=== PATIENT | female | born 1980 | race Caucasian/White ===

== ENCOUNTER 2016-12-01 22:51 | Inpatient (IN) | payer OTHER ==
[~2016-12-01] VITALS: Ht 162.6 cm; Wt 90.7 kg
--- NOTE | 2016-12-01 22:58 | NUR ---
Informed waiting has been performed. PT AWARE OF 2 HOUR POTENTIAL WAIT
--- NOTE | 2016-12-01 23:53 | ED GI/GU/ABDOMINAL COMPLAINT ---
History of Present Illness General Chief Complaint: Abdominal Pain/Flank Pain Stated Complaint: ABD/HERNIA PAIN Source: patient Exam Limitations: no limitations Vital Signs & Intake/Output Vital Signs & Intake/Output Vital Signs Date Time Temp Pulse Resp B/P B/P Pulse O2 O2 Flow FiO2 Mean Ox Delivery Rate 12/02 0117 96.9 109 20 124/72 94 Room Air 12/01 2358 96.6 114 18 127/79 98 Room Air ED Intake and Output 12/02 0000 06 1200 Intake Total Output Total Balance Patient 190 lb Weight Allergies Coded Allergies: bee venom protein (honey bee) (Intermediate, BEES 12/02/16) ibuprofen (HX GASTRIC BYPASS AND ULCERS 12/01/16) Triage Nurses Notes Reviewed? yes (none) ? n Is pt currently ? No HPI: Ms. Back is a 36 yo f w/ PMH of depression/anxiety presenting to ED for abdominal pain. Patient states her pains been ongoing for the past 2 days but has acutely worsened tonight. She endorses nausea without any vomiting. Subjective feeling of warmness but denies fever or chills. Patient believes this pain is coming from her abdominal hernia which she has had 2 operations on. Patient denies any possibility of being as she does have the Implanon in place. No chest pain, cough, shortness of breath, vomiting or diarrhea. Positive nausea. Patient also states she has history of gastritis and ulcers and cannot take any Motrin. (JUN JONES,ANKIT) Reconcile Medications Gabapentin 600 MG TABLET 1 TAB PO TID DIABETES (Reported) Lamotrigine 100 MG TABLET DEPRESSION (Reported) (LADONNA JONES,ALLISON Leslie) Past History Travel History Traveled to [place] past 21 day No Medical History Any Pertinent Medical History? see below for history Psychiatric: anxiety, depression, insomnia Surgical History Surgical History: hernia repair, gastric bypass Psychosocial History Who do you live with Patient/Self What is your primary language Malagasy Family History Hx Contributory? No (ANKIT BARAHONA MD) Review of Systems Review of Systems Constitutional: Reports: see HPI. EENTM: Reports: see HPI. Respiratory: Reports: no symptoms. Cardiovascular: Reports: no symptoms. GI: Reports: abdominal pain, distention, nausea. Genitourinary: Reports: no symptoms. Musculoskeletal: Reports: no symptoms. Skin: Reports: no symptoms. Neurological/Psychological: Reports: no symptoms. Hematologic/Endocrine: Reports: no symptoms. Immunologic/Allergic: Reports: no symptoms. All Other Systems: Reviewed and Negative (ANKIT BARAHONA MD) Physical Exam Physical Exam General Appearance: well developed/nourished, alert, awake, moderate distress Head: atraumatic, normal appearance Eyes: Bilateral: normal appearance, PERRL, EOMI, normal inspection. Ears, Nose, Throat, Mouth: hearing grossly normal, moist mucous membrane Neck: normal inspection, supple, full range of motion Respiratory: normal breath sounds, chest non-tender, no respiratory distress Cardiovascular: regular rate/rhythm Gastrointestinal: normal bowel sounds, soft, guarding, RUQ, epigastric and RLQ abdominal pain. No rebound. +voluntary guarding. Back: normal inspection, normal range of motion Extremities: normal range of motion Neurologic/Psych: no motor/sensory deficits, awake, alert, oriented x 3, normal gait, normal mood/affect Skin: intact, normal color, warm/dry Core Measures ACS in differential dx? No Severe Sepsis Present: No Septic Shock Present: No (ANKIT BARAHONA MD) Progress Differential Diagnosis: appendicitis, cholecystitis, diverticulitis, gastritis, ischemic bowel, peptic ulcer, PUD/GERD, perforated viscous, UTI/pyelo Plan of Care: Orders Procedure Date/time Status Add-on Test (ER Only) 12/02 0120 Active HUMAN BETA HCG TITRE 12/02 0030 Complete URINALYSIS 12/02 0008 Active LACTIC ACID 12/02 0006 Complete COMPREHENSIVE METABOLIC PANEL 12/02 0006 Complete CBC WITHOUT DIFFERENTIAL 12/02 0006 Complete Current Medications Sig/Lyndon Start time Last Medication Dose Stop Time Status Admin Sodium Chloride 1,000 ML BOLUS ONE 12/02 0415 AC 12/02 (Normal Saline 0.9%) 12/02 0514 0407 Laboratory Tests 12/02/16 0306: Lactic Acid Cancelled 12/02/16 0030: Anion Gap 10, Estimated GFR > 60, BUN/Creatinine Ratio 26.7 H, Glucose 108 H, Lactic Acid 1.9, Calcium 9.0, Total Bilirubin 0.4, AST 20, ALT 39, Alkaline Phosphatase 70, Total Protein 6.3, Albumin 3.7, Globulin 2.6, Albumin/Globulin Ratio 1.4, Beta HCG, Quant < 2.4, CBC w Diff NO MAN DIFF REQ, RBC 4.24, MCV 86.2 , MCH 28.7, RDW 17.7 H, MPV 8.0, Gran % 71.4, Lymphocytes % 22.4, Monocytes % 5.1, Eosinophils % 0.6, Basophils % 0.5, Absolute Granulocytes 6.3, Absolute Lymphocytes 2.0, Absolute Monocytes 0.4, Absolute Eosinophils 0, Absolute Basophils 0, PUBS MCHC 33.3 Michael is a 36 yo f w/ abdominal pain w/ 3 previous surgeries (1 lap gastric bypass, 1 lap hernia repair, 1 open hernia repair). Possib obstruction, but less likely given the lack of vomiting. + ischemic gut or closed loop obstruction. Pt also had + mejia's sign and RLQ pain. Possib cholecystitis vs appendicitis respectively. Will administer zofran and morphine then plan to obtain CT abd pelv w/ PO/IV contrast. (JUN JONES,ANKIT) Initial ED EKG: none Hand-Off Endorsed To: LADONNA JONES,ALLISON Leslie Endorsed Time: 50 Pending: CT, labs, other (urine preg, UA) (JUN JONES,ANKIT) Diagnostic Imaging: Viewed by Me: CT Scan. Discussed w/RAD: CT Scan. Radiology Impression: PATIENT: MICHAEL BACK PRESENT AGE: 36 PATIENT ACCOUNT NO: [id number] : 78 LOCATION: [facility] ORDERING PHYSICIAN: ANKIT BARAHONA MD SERVICE DATE: 12/02/16 EXAM TYPE: CAT - CT ABD & PELVIS W ORAL & IV CO EXAMINATION: CT ABDOMEN AND PELVIS WITH CONTRAST CLINICAL INFORMATION: Abdominal pain. History of hernia and gastric bypass. Question appendicitis. COMPARISON: 06/15/2012 TECHNIQUE: Multidetector volumetric imaging was performed of the abdomen and pelvis before and after the IV administration of 95 mL of Optiray 320 intravenous contrast. Oral contrast was utilized. Sagittal and coronal reformatted images were obtained on the technologist's workstation. DLP: 794 mGy-cm FINDINGS: LUNG BASES: The visualized lung bases are unremarkable. LIVER, GALLBLADDER, AND BILIARY TREE: The liver is normal in size, shape, and attenuation. No focal hepatic lesion or biliary ductal dilatation is present. The gallbladder is unremarkable with no evidence of radiopaque gallstones, gallbladder wall thickening, or obvious pericholecystic inflammatory changes. PANCREAS: Unremarkable. SPLEEN: Unremarkable. ADRENAL GLANDS: Unremarkable. KIDNEYS AND URETERS: The kidneys are normal in size, shape, and attenuation. No hydronephrosis, hydroureter, or calculi seen. No perinephric stranding. BLADDER: Decompressed with no gross abnormality. GASTROINTESTINAL TRACT: Status post Jose-en-Y gastric bypass. Small hiatal hernia. Contrast freely flows across the gastrojejunostomy and into the small bowel distally. No obstruction. There is the appearance of wall thickening of the gastric antrum. Prominent inflammatory changes are seen in the surrounding mesenteric fat extending anteriorly and inferiorly. Small foci of free air are noted. Moderate colonic stool burden. No colonic wall thickening. Fecalization of portions of the small bowel suggests slow transit. Normal appendix. ABDOMINAL WALL: No significant hernia is appreciated. LYMPH NODES: Normal. VASCULAR: Unremarkable. PELVIC VISCERA: The uterus and adnexa are unremarkable. OSSEOUS STRUCTURES: Unremarkable. IMPRESSION: Prominent inflammatory stranding adjacent to the gastric antrum extending anteriorly and distally in the abdomen. Associated wall thickening at the gastric antrum with small foci of adjacent free air. The appearance is suspicious for perforation of a gastric ulcer. Jose-en-Y gastric bypass without obstruction. Normal appendix. This critical result was discussed with Allison Finnegan M.D. by telephone at 12/02/2016 2:30 AM and it was ascertained that the content and urgency of the report was understood at the time of direct communication. DICTATED BY: LINAA MARX MD DATE/TIME DICTATED:12/02/16225 RESEARCH SUBJECT:ALICIA DATE/TIME TRANSCRIBED:12/02/16225 CONFIDENTIAL, DO NOT COPY WITHOUT APPROPRIATE AUTHORIZATION. <Electronically signed in Other Vendor System> SIGNED BY: LIANA MARX MD 12/02/16 0238 (LADONNA JONES,ALLISON Leslie) Departure Departure Time of Disposition: 53 Disposition: STILL A PATIENT Condition: Stable Referrals: MER SORIANO (PCP/Family) Departure Forms: Customer Survey General Discharge Information (ANKIT BARAHONA MD) Departure Clinical Impression Primary Impression: Abdominal pain Qualifiers: Abdominal location: generalized Qualified Code: R10.84 - Generalized abdominal pain Secondary Impressions: Perforated gastric ulcer Admission Note Spoke With: ASHLYN PIRES MD Documentation of Exam: Documentation of any treatments & extenuating circumstances including Concerns Regarding Discharge (functional status, medication knowledge or non-compliance, living conditions, etc.) that warrant an admission rather than observation: [NPO , IV FLUIDS, IV ABX, SURGICAL INTERVENTION] Resident Co-Sign Statement Statement: ED Attending supervision documentation- [X] I saw and evaluated the patient. I have also reviewed all the pertinent lab results and diagnostic results. I agree with the findings and the plan of care as documented in the Resident's documentation. [X] I have reviewed the ED Record and agree with the Resident's documentation. [] Additions or exceptions (if any) to the Resident's note and plan are summarized below: [] (LADONNA JONES,ALLISON Lesile)
[2016-12-02 00:50] LABS: ABSOLUTE BASOPHIL COUNT 0 /CUMM (0.0-0.2); ABSOLUTE EOSINOPHIL COUNT 0 /CUMM (0.0-0.7); ABSOLUTE GRANULOCYTE CT 6.3 /CUMM (1.4-6.5); ABSOLUTE MONOCYTE COUNT 0.4 /CUMM (0.10-0.60); BASOPHIL % 0.5 % (0.0-2.0); EOSINOPHIL % 0.6 % (0-5); GRANULOCYTE % 71.4 % (42.2-75.2); HEMATOCRIT 36.5 % (37-47); MEAN CORPUSCULAR HGB 28.7 PG (27.0-31.0); MEAN CORPUSCULAR HGB CONC 33.3 G/DL (33.0-37.0); MEAN CORPUSCULAR VOLUME 86.2 FL (81.0-99.0); PLATELET COUNT 408 /CUMM (130-400); RBC DISTRIBUTION WIDTH 17.7 % (11.5-14.5); RED BLOOD CELL CT 4.24 /CUMM (4.20-5.40); WHITE BLOOD CELL COUNT 8.9 /CUMM (4.8-10.8)
[2016-12-02] MEDS ORDERED: GABAPENTIN600 M1 PO (00:55)
[2016-12-02] MEDS ORDERED: LAMOTRIGINE100 M2 (00:55)
--- NOTE | 2016-12-02 01:00 | NUR ---
PT REPORTS HAVING ABD PAIN, STATES IT BEGAN AFTER SHE ATE. ALSO REPORTS IT FEELS LIKE THE SAME WHEN SHE HAD A HERNIA.
--- NOTE | 2016-12-02 01:20 | NUR ---
AWAITING TEST RESULT PRIOR TO CT SCAN.
--- NOTE | 2016-12-02 02:30 | NUR ---
PT RETURNED FROM CT
--- NOTE | 2016-12-02 02:38 | CT SCAN REPORT ---
EXAMINATION: CT ABDOMEN AND PELVIS WITH CONTRAST CLINICAL INFORMATION: Abdominal pain. History of hernia and gastric bypass. Question appendicitis. COMPARISON: 06/15/2012 TECHNIQUE: Multidetector volumetric imaging was performed of the abdomen and pelvis before and after the IV administration of 95 mL of Optiray 320 intravenous contrast. Oral contrast was utilized. Sagittal and coronal reformatted images were obtained on the technologist's workstation. DLP: 794 mGy-cm FINDINGS: LUNG BASES: The visualized lung bases are unremarkable. LIVER, GALLBLADDER, AND BILIARY TREE: The liver is normal in size, shape, and attenuation. No focal hepatic lesion or biliary ductal dilatation is present. The gallbladder is unremarkable with no evidence of radiopaque gallstones, gallbladder wall thickening, or obvious pericholecystic inflammatory changes. PANCREAS: Unremarkable. SPLEEN: Unremarkable. ADRENAL GLANDS: Unremarkable. KIDNEYS AND URETERS: The kidneys are normal in size, shape, and attenuation. No hydronephrosis, hydroureter, or calculi seen. No perinephric stranding. BLADDER: Decompressed with no gross abnormality. GASTROINTESTINAL TRACT: Status post Jose-en-Y gastric bypass. Small hiatal hernia. Contrast freely flows across the gastrojejunostomy and into the small bowel distally. No obstruction. There is the appearance of wall thickening of the gastric antrum. Prominent inflammatory changes are seen in the surrounding mesenteric fat extending anteriorly and inferiorly. Small foci of free air are noted. Moderate colonic stool burden. No colonic wall thickening. Fecalization of portions of the small bowel suggests slow transit. Normal appendix. ABDOMINAL WALL: No significant hernia is appreciated. LYMPH NODES: Normal. VASCULAR: Unremarkable. PELVIC VISCERA: The uterus and adnexa are unremarkable. OSSEOUS STRUCTURES: Unremarkable. IMPRESSION: Prominent inflammatory stranding adjacent to the gastric antrum extending anteriorly and distally in the abdomen. Associated wall thickening at the gastric antrum with small foci of adjacent free air. The appearance is suspicious for perforation of a gastric ulcer. Jose-en-Y gastric bypass without obstruction. Normal appendix. This critical result was discussed with Mack Finnegan M.D. by telephone at 12/02/2016 2:30 AM and it was ascertained that the content and urgency of the report was understood at the time of direct communication.
--- NOTE | 2016-12-02 02:56 | NUR ---
LIBIA CRAIG RETURNED CALL.
--- NOTE | 2016-12-02 04:05 | NUR ---
PT DOES NOT FEEL THE URGE TO VOID MD AWARE,2ND LITER KOLBY BARRAZA BY SURG PA NOW AWAITS PRANAY HOLLY,
--- NOTE | 2016-12-02 05:30 | NUR ---
DR. PIRES IN WITH PT.
--- NOTE | 2016-12-02 05:32 | NUR ---
ANESTHESIA AT BEDSIDE.
--- NOTE | 2016-12-02 05:36 | NUR ---
PT NOW REPORTS VOIDED IN CT. UNABLE TO GO AT THIS TIME
--- NOTE | 2016-12-02 05:48 | Admission Core Measures ---
Admission Lab Results I reviewed the following labs: Laboratory Tests 12/02 12/02 0306 0030 Chemistry Sodium (137 - 145 mmol/L) 139 Potassium (3.5 - 5.1 mmol/L) 4.6 Chloride (98 - 107 mmol/L) 104 Carbon Dioxide (22 - 30 mmol/L) 24 Anion Gap (5 - 16) 10 BUN (7 - 17 mg/dL) 16 Creatinine (0.5 - 1.0 mg/dL) 0.6 Estimated GFR (>60 ml/min) > 60 BUN/Creatinine Ratio (7 - 25 %) 26.7 H Glucose (65 - 99 mg/dL) 108 H Lactic Acid (0.7 - 2.1 mmol/L) Cancelled 1.9 Calcium (8.4 - 10.2 mg/dL) 9.0 Total Bilirubin (0.2 - 1.3 mg/dL) 0.4 AST (14 - 36 U/L) 20 ALT (9 - 52 U/L) 39 Alkaline Phosphatase (<127 U/L) 70 Total Protein (6.3 - 8.2 g/dL) 6.3 Albumin (3.5 - 5.0 g/dL) 3.7 Globulin (1.9 - 4.2 gm/dL) 2.6 Albumin/Globulin Ratio (1.1 - 2.2 %) 1.4 Beta HCG, Quant (mIU/mL) < 2.4 Hematology CBC w Diff NO MAN DIFF REQ WBC (4.8 - 10.8 /CUMM) 8.9 RBC (4.20 - 5.40 /CUMM) 4.24 Hgb (12.0 - 16.0 G/DL) 12.2 Hct (37 - 47 %) 36.5 L MCV (81.0 - 99.0 FL) 86.2 MCH (27.0 - 31.0 PG) 28.7 RDW (11.5 - 14.5 %) 17.7 H Plt Count (130 - 400 /CUMM) 408 H MPV (7.4 - 10.4 FL) 8.0 Gran % (42.2 - 75.2 %) 71.4 Lymphocytes % (20.5 - 51.1 %) 22.4 Monocytes % (1.7 - 9.3 %) 5.1 Eosinophils % (0 - 5 %) 0.6 Basophils % (0.0 - 2.0 %) 0.5 Absolute Granulocytes (1.4 - 6.5 /CUMM) 6.3 Absolute Lymphocytes (1.2 - 3.4 /CUMM) 2.0 Absolute Monocytes (0.10 - 0.60 /CUMM) 0.4 Absolute Eosinophils (0.0 - 0.7 /CUMM) 0 Absolute Basophils (0.0 - 0.2 /CUMM) 0 PUBS MCHC (33.0 - 37.0 G/DL) 33.3 Acute Coronary Syndrome Inclusion Criteria ACS Diagnosis No Inpatient Core Measures LDL Reminder: If No, please order W/I first 24hr of stay Congestive Heart Failure Inclusion Criteria CHF Diagnosis No Cerebrovascular accident Inclusion Criteria CVA/TIA Diagnosis No Inpatient Core Measures Bedside Swallow Eval Reminder: If BSE failed, place ST order Antithrombotic Reminder: Order Antithrombotic Medication by end of day 2 Antithrombotic Reminder: Document Reason Antithrombotic Not ordered by end of day 2 AFIB/Flutter Reminder: If Present, add to problem list AFIB/Flutter Reminder: Order Anticoag Medication for pts with AFIB/Flutter Atherosclerosis Reminder: If Present, add to problem list LDL Reminder: If No, please order W/I first 24hr of stay PT Order Reminder: If No, please order Venous thromboembolism Inpatient Core Measures VTE Risk Factors: Surgery No [facility] VTE prophylaxis d/t No contraindications No VTE Pharm Prophylaxis d/t No contraindications Inclusion Criteria - Per Current guidelines, there needs to be overlap - treatment for the first 5 days of Warfarin therapy. - Parenteral Anticoagulation (IV or SC) needs to be - given along with Warfarin therapy. VTE Diagnosis No VTE Type NONE VTE Confirmed by (Test) NONE Problem List As ranked by this Provider includes Assessment & Plan 1. Pneumoperitoneum HOME MEDS Home Med List Gabapentin 600 MG TABLET 1 TAB PO TID DIABETES (Reported)
[2016-12-02] MEDS ORDERED: METHADONE HCL10 M1 PO (05:58)
[2016-12-02] MEDS ORDERED: ABILIFY2 MG (05:59)
--- NOTE | 2016-12-02 06:11 | History & Physical Pre-Op ---
See Addendum General Information and HPI MD Statement: I have seen and personally examined UGO HARDY and documented this H&P. The patient is a 36 year old F who presented with a patient stated chief complaint of []. History of Present Illness: 36yoF presents to ED co abdominal pain worsening over approx. 24 hrs. 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 Began to noitce dull pain right side of abd approx 24 hr ago, than has since worsened. Last BM yesterday am, no constipation/diarrhea, no blood in stool. No nausea/vomiting, little PO intake since pain began. Denies CP/sob/f/c. Has never had such severe abdominal pain, and sought tx in ED. On CT, found with pnemoperitoneum from ?perforated gastric ulcer of remnant stomach. Had UNasyn and IVF in ED. Allergies/Medications Allergies: Coded Allergies: bee venom protein (honey bee) (Intermediate, BEES 12/02/16) ibuprofen (HX GASTRIC BYPASS AND ULCERS 12/01/16) Home Med list Aripiprazole (Abilify) (Unknown Strength) TABLET (Unknown Dose) DEP (Reported ) Gabapentin 600 MG TABLET 1 TAB PO TID DIABETES (Reported) Lamotrigine 100 MG TABLET DEPRESSION (Reported) Methadone Hydrochloride (Methadone HCl) 10 MG TABLET 65 MG PO D DRUGS ( Reported) Compliance With Home Meds: UNKNOWN Past History Medical History Neurological: NONE EENT: NONE Cardiovascular: NONE Respiratory: NONE Gastrointestinal: hiatal hernia, GASTRIC BYPASS Hepatic: NONE Renal: NONE Musculoskeletal: NONE Psychiatric: anxiety, depression, insomnia, IV drug abuse (METHADONE MAINTANCE PROGRAM) Endocrine: NONE Blood Disorders: NONE Cancer(s): NONE SAP SPECIALIST/Reproductive: NONE Surgical History Pertinent Surgical History: hernia repair gastric bypass Exam & Diagnostic Data Physical Exam: GEN: NAD CARD: s1s2 RRR PULM:CTAB ABD: dist, tympanic, very ttp right abd, hyperactive bs EXT: calves soft nt Last 24 Hrs of Labs/Ghulam: Laboratory Tests 12/02/16 0306: Lactic Acid Cancelled 12/02/16 0030: Anion Gap 10, Estimated GFR > 60, BUN/Creatinine Ratio 26.7 H, Glucose 108 H, Lactic Acid 1.9, Calcium 9.0, Total Bilirubin 0.4, AST 20, ALT 39, Alkaline Phosphatase 70, Total Protein 6.3, Albumin 3.7, Globulin 2.6, Albumin/Globulin Ratio 1.4, Beta HCG, Quant < 2.4, CBC w Diff NO MAN DIFF REQ, RBC 4.24, MCV 86.2 , MCH 28.7, RDW 17.7 H, MPV 8.0, Gran % 71.4, Lymphocytes % 22.4, Monocytes % 5.1, Eosinophils % 0.6, Basophils % 0.5, Absolute Granulocytes 6.3, Absolute Lymphocytes 2.0, Absolute Monocytes 0.4, Absolute Eosinophils 0, Absolute Basophils 0, PUBS MCHC 33.3 Assessment/Plan Assessment/Plan: A: Abd pain, pneumoperitoneum on CT, tachycardic, otherwise stable. P: Emergently to OR DW Dr. Cervantes As Ranked By This Provider Problem List: 1. Pneumoperitoneum
[2016-12-02] MEDS ORDERED: ABILIFY5 M1 PO (07:43)
--- NOTE | 2016-12-02 08:02 | Operative Report ---
Operative/Inv Procedure Report Surgery Date: 12/02/16 Name of Procedure: Exploratory laparoscopy and Ja patch Pre-Operative Diagnosis: Perforated gastric antral ulcer Post-Operative Diagnosis: Perforated gastric antral ulcer Estimated Blood Loss: evangelina Surgeon/Outreach Worker: Dr. Stefano Angulo surgeon Dr. Billy loomis Asst. Anesthesia: general endotracheal tube Drains: SONY placed over the gastric ulcer in the lesser curve Complications: None Condition: Stable Operative Indication: This is a 36-year-old female who of her previous gastric bypass done open in the past. She has had previous lysis of adhesions for 5 hours finding no evidence of pathology in the past. She presented to the hospital with epigastric abdominal pain history of smoking and vaporizing and possible other abuse she was then found to have free air around the antrum of the stomach consistent ureters consistent with perforated viscus. The patient was seen by Dr. Cervantes who was the attending at the time and he explained the risks and potential complications I have not seen the patient prior to surgery. I was called in after the patient was intubated and Dr. Cervantes started the case. Operative/Procedure Note Note: The patient was brought into the operating room placed table in the supine position after the administration of general anesthesia the patient was prepped and draped in the sterile fashion. A 12 mm Visiport was placed in the left upper quadrant and inserted after making an incision and local anesthesia as performed by Dr. Cervantes. Obtaining visualization I entered the room and joined the case. A second port was placed in the left midabdomen. Third and fourth port ports were placed in the right upper quadrant. At this time could see there was inflammation in and around the second and third portion of the liver. Liver was elevated. Was hard inflammatory fatty omentum under beneath the liver. Once his fatty omentum was freed up one could see that there was a 1/2 cm punctate hole in the stomach. Well-defined edges. Rasper could be inserted through this hole and into the stomach lumen. So was the location of the lesser curve of the stomach. At this time with clean edges a 20 absorbable V lock suture was then used starting on the stomach placing a full-thickness stitch locking it and running with 4 passes and completely closing the ulcer defect. Then a piece of fatty omentum was freed up with the use of LigaSure device was brought underneath and it was locked into place with the 20V lock suture. The abdomen was irrigated with copious amounts of saline. One 4 x 4 was used and them removed. The ports removed under direct vision the gas removed from the abdomen the Valsalva maneuvers performed. The left upper quadrant incision was closed with 2 interrupted 0 Vicryl sutures. Can was closed with 4-0 Monocryl. SONY was sewn in with 2-0 nylon. These Steri-Strips replacement wounds had sterile dressing on the wound. The procedure was brought to recovery in stable condition.
--- NOTE | 2016-12-02 10:20 | NUR ---
PATIENT ARRIVED TO FLOOR FROM PACU VIA STRETCHER; PATIENT A/OX3; RA; TRANSFERED FROM STRETCHER TO BED; PATIENT COMPLAINING OF 10/10 ABDOMINAL PAIN; ABDOMEN SOFT; 3 SMALL DRESSINGS TO ABDOMEN C/D/I; SONY DRAIN TO ABDOMEN; TURNER CATHETER IN PLACE; PATIENT MEDICATED WITH DAILY METHADONE AT THIS TIME PER ORDERS AND ALSO GIVEN IV TYLENOL FOR PAIN PER ORDERS; ALPS IN PLACE; CALL STEELE AND NEEDS WITHIN REACH; WILL CONTINUE TO MONITOR PATIENT;
[2016-12-02 10:26] VITALS: BP 136/90
--- NOTE | 2016-12-02 11:00 | NUR ---
PATIENT OOB TO CHAIR WITH MIN ASSIST; EATING ESTONIAN ICE AT THIS TIME; WILL CONTINUE TO MONITOR PATIENT;
[2016-12-02 14:24] VITALS: BP 110/70
--- NOTE | 2016-12-02 15:11 | PN- Bariatrics ---
Subjective Subjective: POST-OP NOTE: Reports pain uncontrolled with iv tylenol and iv morphine. "Dilaudid helped me in the ER". Currently tolerating clears. No nausea. Not yet out of bed. No dizziness. No shortness of breath. No chest pains. Agreeable to morales removal. Objective Vital Signs and I&Os Vital Signs Date Time Temp Pulse Resp B/P B/P Pulse O2 O2 Flow FiO2 Mean Ox Delivery Rate 12/02 1424 97.5 77 20 110/70 94 / 1026 98.1 78 20 136/90 94 / 0117 96.9 109 20 124/72 94 Room Air 12/01 2358 96.6 114 18 127/79 98 Room Air Intake & Output 12/02 1600 12/02 0800 12/02 0000 12/01 1600 12/01 0800 12/01 0000 Intake Total 600 1000 Output Total 2570 Balance -1970 1000 Intake, IV 300 1000 Intake, Oral 300 Output, 20 Drainage Output, Urine 2550 Patient 200 lb 190 lb Weight Weight Reported by Patient Measurement Method Physical Exam: General - alert & oriented x 3. comfortable. no acute distress. Lungs - clear bilaterally. no w/r/r. Cardiac - s1s2. reg. Abdomen - soft. dressings c/d/i. SONY drain with serosang drainage. expected christian- incisional tenderness. - morales draining clear, yellow urine Extremities - warm bilaterally. no c/c/e. calves soft and nontender b/l. athrombics active. Current Medications: Current Medications Sig/Lyndon Start time Last Medication Dose Route Stop Time Status Admin Acetaminophen 1,000 MG Q6P PRN 12/02 0730 AC 12/02 IV 1032 Ampicillin Sodium/ 3,000 MG Q6 12/02 1200 AC 12/02 Sulbactam Sodium IV 12/12 1159 1327 Sodium Chloride 100 ML Ampicillin Sodium/ 0 .STK-MED ONE 12/02 0247 DC Sulbactam Sodium .ROUTE Ampicillin Sodium/ 3,000 MG ONCE ONE 12/02 0245 DC 12/02 Sulbactam Sodium IV 12/02 0314 0247 Sodium Chloride 100 ML Aripiprazole 5 MG DAILY 12/02 1000 AC 12/02 PO 1326 Bupivacaine HCl/ 10 ML .STK-MED ONE 12/02 0944 DC Epinephrine Bitart SC 12/02 0945 Dextrose/Sodium 1,000 ML .[id number] 12/02 0730 AC 12/02 Chloride IV 1036 Famotidine 0 .STK-MED ONE 12/02 0041 DC IV Famotidine 20 MG ONCE ONE 12/02 0030 DC 12/02 IV 12/02 0031 0042 Gabapentin 600 MG Q8 12/02 1400 AC 06 PO 1326 Heparin Sodium 5,000 UNIT Q8 12/02 1400 AC 12/02 (Porcine) SC 1327 Hydromorphone HCl 1 MG ONCE ONE 12/02 0245 DC 12/02 IV 12/02 0246 0240 Hydromorphone HCl 0 .STK-MED ONE 12/02 0242 DC .ROUTE Hydromorphone HCl 1 MG ONCE ONE 12/02 0130 DC 12/02 IV 12/02 0131 0125 Hydromorphone HCl 0 .STK-MED ONE 12/02 0128 DC .ROUTE Ketorolac 30 MG ONCE ONE 12/02 1345 DC 12/02 Tromethamine IV 12/02 1346 1421 Lamotrigine 100 MG DAILY 12/02 1000 AC 12/02 PO 1326 Methadone HCl 65 MG DAILY 12/02 1000 AC 12/02 PO 1033 Morphine Sulfate 2 MG Q3P PRN 12/02 1300 AC IV Morphine Sulfate 4 MG Q3P PRN 12/02 1300 AC 12/02 IV 1303 Morphine Sulfate 0 .STK-MED ONE 12/02 0041 DC .ROUTE Morphine Sulfate 10 MG ONCE ONE 12/02 0015 DC 12/02 IV 12/02 0016 0042 Nicotine 14 MG DAILY 12/02 1000 AC 12/02 TOP 1327 Ondansetron HCl 4 MG Q6P PRN 12/02 0730 AC IV Ondansetron HCl 0 .STK-MED ONE 12/02 0040 DC .ROUTE Ondansetron HCl 4 MG ONCE ONE 12/02 0015 DC 12/02 IV 12/02 0016 0042 Pantoprazole Sodium 40 MG BID 12/02 1000 AC 12/02 IV 1032 Sodium Chloride 1,000 ML BOLUS ONE 12/02 0415 DC 12/02 IV 12/02 0514 0407 Sodium Chloride 1,000 ML BOLUS ONE 12/02 0015 DC 12/02 IV 12/02 0114 0042 Results Last 48 Hours of Labs: Laboratory Tests 12/02 12/02 0306 0030 Chemistry Sodium (137 - 145 mmol/L) 139 Potassium (3.5 - 5.1 mmol/L) 4.6 Chloride (98 - 107 mmol/L) 104 Carbon Dioxide (22 - 30 mmol/L) 24 Anion Gap (5 - 16) 10 BUN (7 - 17 mg/dL) 16 Creatinine (0.5 - 1.0 mg/dL) 0.6 Estimated GFR (>60 ml/min) > 60 BUN/Creatinine Ratio (7 - 25 %) 26.7 H Glucose (65 - 99 mg/dL) 108 H Lactic Acid (0.7 - 2.1 mmol/L) Cancelled 1.9 Calcium (8.4 - 10.2 mg/dL) 9.0 Total Bilirubin (0.2 - 1.3 mg/dL) 0.4 AST (14 - 36 U/L) 20 ALT (9 - 52 U/L) 39 Alkaline Phosphatase (<127 U/L) 70 Total Protein (6.3 - 8.2 g/dL) 6.3 Albumin (3.5 - 5.0 g/dL) 3.7 Globulin (1.9 - 4.2 gm/dL) 2.6 Albumin/Globulin Ratio (1.1 - 2.2 %) 1.4 Beta HCG, Quant (mIU/mL) < 2.4 Hematology CBC w Diff NO MAN DIFF REQ WBC (4.8 - 10.8 /CUMM) 8.9 RBC (4.20 - 5.40 /CUMM) 4.24 Hgb (12.0 - 16.0 G/DL) 12.2 Hct (37 - 47 %) 36.5 L MCV (81.0 - 99.0 FL) 86.2 MCH (27.0 - 31.0 PG) 28.7 RDW (11.5 - 14.5 %) 17.7 H Plt Count (130 - 400 /CUMM) 408 H MPV (7.4 - 10.4 FL) 8.0 Gran % (42.2 - 75.2 %) 71.4 Lymphocytes % (20.5 - 51.1 %) 22.4 Monocytes % (1.7 - 9.3 %) 5.1 Eosinophils % (0 - 5 %) 0.6 Basophils % (0.0 - 2.0 %) 0.5 Absolute Granulocytes (1.4 - 6.5 /CUMM) 6.3 Absolute Lymphocytes (1.2 - 3.4 /CUMM) 2.0 Absolute Monocytes (0.10 - 0.60 /CUMM) 0.4 Absolute Eosinophils (0.0 - 0.7 /CUMM) 0 Absolute Basophils (0.0 - 0.2 /CUMM) 0 PUBS MCHC (33.0 - 37.0 G/DL) 33.3 Assessment/Plan Assessment/Plan This 36 year old white female with hx gastric bypass who is POD#0 s/p exploratory laparoscopy and Ja patch for perforated gastric antral ulcer tolerating clears d/c morales she is reporting "only dilaudid helped me". continue iv tylenol. continue iv unasyn for intra-abdominal perforation / infection protonix bid hep sc - dvt ppx oob/ambulation continue methadone ok for nicotine patch but she verbalizes understanding of importance of smoking cessation will d/w Core Measures/Miscellaneous Venous Thromboembolism VTE Risk Factors: Obesity, Smoking, Surgery VTE Contraindications: No Contraindications VTE Diagnosis: No VTE Type: NONE VTE Confirmed by (Test): NONE Beta Marya Is Beta Marya a Home Med? No Antibiotics Is Patient on Antibiotics? Yes If Yes: infection
--- NOTE | 2016-12-02 20:20 | NUR ---
PT A&O, AMBULATING INDEPENDENTLY ON FLOOR, TURNER REMOVED AND PATIENT HAS VOIDED MULTIPLE TIMES. ABD BINDER IN PLACE, HELPING WITH PAIN, SOME DRAINAGE AT SONY DRAIN SITE, SURGICAL PA IS AWARE. PAIN 8-10, BEING MEDICATED WITH DILAUDID WITH A POSITIVE EFFECT. SAFETY MAINTAINED, NEEDS WITHIN REACH.
[2016-12-02 21:59] VITALS: BP 124/72
[2016-12-03 02:05] VITALS: BP 106/70
--- NOTE | 2016-12-03 06:44 | PN- Bariatrics ---
Subjective Subjective: Reports pain uncontrolled. Valium didn't help her "muscle spasm". Tolerating clears. Asking to eat. Getting up to void frequently. Passing flatus. no bm. Denies dizziness. no shortness of breath. No chest pains. Objective Vital Signs and I&Os Vital Signs Date Time Temp Pulse Resp B/P B/P Pulse O2 O2 Flow FiO2 Mean Ox Delivery Rate 12/03 0205 99.3 92 18 106/70 93 Room Air 12/02 2159 99.3 105 20 124/72 93 Room Air 12/02 1424 97.5 77 20 110/70 94 12/02 1026 98.1 78 20 136/90 94 Intake & Output 12/03 0800 12/03 0000 12/02 1600 12/02 0800 12/02 0000 12/01 1600 Intake Total 0688 169 6077 Output Total 820 2970 Balance 380 -2370 1000 Intake, IV 195 005 2385 Intake, Oral 600 300 Output, 20 20 Drainage Output, Urine 800 2950 Patient 200 lb 190 lb Weight Weight Reported by Patient Measurement Method Physical Exam: General - alert & oriented x 3. comfortable. no acute distress. Lungs - clear bilaterally. no w/r/r. Cardiac - s1s2. reg. Abdomen - soft. dressings c/d/i. SONY drain with dark bloody drainage. drain dressing saturated. Extremities - warm bilaterally. no c/c/e. calves soft and nontender bilaterally. Current Medications: Current Medications Sig/Lyndon Start time Last Medication Dose Route Stop Time Status Admin Acetaminophen 1,000 MG Q6P PRN 12/02 0730 AC 12/02 IV 2224 Ampicillin Sodium/ 3,000 MG Q6 12/02 1200 AC 12/03 Sulbactam Sodium IV 12/12 1159 0513 Sodium Chloride 100 ML Aripiprazole 5 MG DAILY 12/02 1000 AC 12/02 PO 1326 Bupivacaine HCl/ 10 ML .STK-MED ONE 12/02 0944 DC Epinephrine Bitart SC 12/02 0845 Dextrose/Sodium 1,000 ML .[id number] 12/02 0630 DC 12/02 Chloride IV 2114 Diazepam 5 MG Q8P PRN 12/03 0645 UNVr PO Diazepam 2 MG Q8P PRN 12/03 0530 DC 12/03 PO 0628 Diazepam 2 MG ONCE ONE 12/02 221 DC 12/02 PO 12/02 2216 2223 Gabapentin 600 MG Q8 12/02 1400 AC 12/03 PO 0518 Heparin Sodium 5,000 UNIT Q8 12/02 1400 AC 12/03 (Porcine) SC 0514 Hydromorphone HCl 0.4 MG Q2-3 HRS NEEDED.. 12/03 0545 UNVr IV Hydromorphone HCl 0.6 MG Q2-3 HRS NEEDED.. 12/03 0545 UNVr IV Hydromorphone HCl 1 MG Q2-3 HRS NEEDED.. 12/03 0545 UNVr IV Hydromorphone HCl 0.2 MG Q2-3 HRS NEEDED.. 12/02 1515 DC IV Hydromorphone HCl 0.4 MG Q2-3 HRS NEEDED.. 12/02 1515 DC IV Hydromorphone HCl 0.6 MG Q2-3 HRS NEEDED.. 12/02 1515 DC 12/03 IV 0457 Ketorolac 30 MG Q6 12/03 0638 UNVr Tromethamine IV Ketorolac 30 MG ONCE ONE 12/02 1345 DC 12/02 Tromethamine IV 12/02 1346 1421 Lamotrigine 100 MG DAILY 12/02 1000 AC 12/02 PO 1326 Methadone HCl 65 MG DAILY 12/02 1000 AC 12/02 PO 1033 Morphine Sulfate 2 MG Q3P PRN 12/02 1300 DC IV Morphine Sulfate 4 MG Q3P PRN 12/02 1300 DC 12/02 IV 1303 Nicotine 14 MG DAILY 12/02 1000 AC 12/02 TOP 1327 Ondansetron HCl 4 MG Q6P PRN 12/02 0730 AC IV Pantoprazole Sodium 40 MG BID 12/02 1000 AC 12/02 IV 2103 Trazodone HCl 50 MG AT BEDTIME NEED.. 12/02 2200 AC PO Results Last 48 Hours of Labs: Laboratory Tests 12/02 12/02 0306 0030 Chemistry Sodium (137 - 145 mmol/L) 139 Potassium (3.5 - 5.1 mmol/L) 4.6 Chloride (98 - 107 mmol/L) 104 Carbon Dioxide (22 - 30 mmol/L) 24 Anion Gap (5 - 16) 10 BUN (7 - 17 mg/dL) 16 Creatinine (0.5 - 1.0 mg/dL) 0.6 Estimated GFR (>60 ml/min) > 60 BUN/Creatinine Ratio (7 - 25 %) 26.7 H Glucose (65 - 99 mg/dL) 108 H Lactic Acid (0.7 - 2.1 mmol/L) Cancelled 1.9 Calcium (8.4 - 10.2 mg/dL) 9.0 Total Bilirubin (0.2 - 1.3 mg/dL) 0.4 AST (14 - 36 U/L) 20 ALT (9 - 52 U/L) 39 Alkaline Phosphatase (<127 U/L) 70 Total Protein (6.3 - 8.2 g/dL) 6.3 Albumin (3.5 - 5.0 g/dL) 3.7 Globulin (1.9 - 4.2 gm/dL) 2.6 Albumin/Globulin Ratio (1.1 - 2.2 %) 1.4 Beta HCG, Quant (mIU/mL) < 2.4 Hematology CBC w Diff NO MAN DIFF REQ WBC (4.8 - 10.8 /CUMM) 8.9 RBC (4.20 - 5.40 /CUMM) 4.24 Hgb (12.0 - 16.0 G/DL) 12.2 Hct (37 - 47 %) 36.5 L MCV (81.0 - 99.0 FL) 86.2 MCH (27.0 - 31.0 PG) 28.7 RDW (11.5 - 14.5 %) 17.7 H Plt Count (130 - 400 /CUMM) 408 H MPV (7.4 - 10.4 FL) 8.0 Gran % (42.2 - 75.2 %) 71.4 Lymphocytes % (20.5 - 51.1 %) 22.4 Monocytes % (1.7 - 9.3 %) 5.1 Eosinophils % (0 - 5 %) 0.6 Basophils % (0.0 - 2.0 %) 0.5 Absolute Granulocytes (1.4 - 6.5 /CUMM) 6.3 Absolute Lymphocytes (1.2 - 3.4 /CUMM) 2.0 Absolute Monocytes (0.10 - 0.60 /CUMM) 0.4 Absolute Eosinophils (0.0 - 0.7 /CUMM) 0 Absolute Basophils (0.0 - 0.2 /CUMM) 0 PUBS MCHC (33.0 - 37.0 G/DL) 33.3 Assessment/Plan Assessment/Plan This 36 year old white female with hx gastric bypass who is POD#1 s/p exploratory laparoscopy and Ja patch for perforated gastric antral ulcer tolerating clears d/c iv fluids f/u labs morales removed yesterday, voiding well continue iv unasyn for intra-abdominal perforation continue iv tylenol. add iv toradol around the clock will increased valium and dilaudid prn pain continue methadone abdominal binder oob/ambulation hep sc - dvt ppx she is reporting "only dilaudid helped me". continue iv tylenol. continue iv unasyn for intra-abdominal perforation / infection protonix bid nicotine patch - smoking cessation will d/w Core Measures/Miscellaneous Venous Thromboembolism VTE Risk Factors: Obesity, Smoking, Surgery VTE Contraindications: No Contraindications VTE Diagnosis: No VTE Type: NONE VTE Confirmed by (Test): NONE Beta Marya Is Beta Marya a Home Med? No Antibiotics Is Patient on Antibiotics? Yes If Yes: infection
[2016-12-03 07:35] VITALS: BP 108/70
[2016-12-03 07:40] LABS: ABSOLUTE BASOPHIL COUNT 0 /CUMM (0.0-0.2); ABSOLUTE EOSINOPHIL COUNT 0 /CUMM (0.0-0.7); ABSOLUTE GRANULOCYTE CT 6.1 /CUMM (1.4-6.5); ABSOLUTE LYMPH COUNT 1.7 /CUMM (1.2-3.4); ABSOLUTE MONOCYTE COUNT 0.9 /CUMM (0.10-0.60); BASOPHIL % 0.3 % (0.0-2.0); EOSINOPHIL % 0.4 % (0-5); HEMATOCRIT 31.9 % (37-47); MEAN CORPUSCULAR HGB 29.2 PG (27.0-31.0); MEAN CORPUSCULAR HGB CONC 32.9 G/DL (33.0-37.0); MEAN CORPUSCULAR VOLUME 88.7 FL (81.0-99.0); MEAN PLATELET VOLUME 8.3 FL (7.4-10.4); PLATELET COUNT 328 /CUMM (130-400); RBC DISTRIBUTION WIDTH 17.8 % (11.5-14.5); RED BLOOD CELL CT 3.59 /CUMM (4.20-5.40); WHITE BLOOD CELL COUNT 8.8 /CUMM (4.8-10.8)
[2016-12-03] MEDS ORDERED: ABILIFY5 M1 PO (11:25)
[2016-12-03 14:32] VITALS: BP 142/64
[2016-12-03 22:29] VITALS: BP 130/78
[2016-12-04 06:53] VITALS: BP 116/76
[2016-12-04 09:08] LABS: ABSOLUTE BASOPHIL COUNT 0 /CUMM (0.0-0.2); ABSOLUTE EOSINOPHIL COUNT 0.1 /CUMM (0.0-0.7); ABSOLUTE GRANULOCYTE CT 4.3 /CUMM (1.4-6.5); ABSOLUTE LYMPH COUNT 2.1 /CUMM (1.2-3.4); ABSOLUTE MONOCYTE COUNT 0.8 /CUMM (0.10-0.60); BASOPHIL % 0.4 % (0.0-2.0); GRANULOCYTE % 57.6 % (42.2-75.2); HEMATOCRIT 30.1 % (37-47); MEAN CORPUSCULAR HGB 28.8 PG (27.0-31.0); MEAN CORPUSCULAR HGB CONC 32.5 G/DL (33.0-37.0); MEAN CORPUSCULAR VOLUME 88.3 FL (81.0-99.0); MEAN PLATELET VOLUME 8.8 FL (7.4-10.4); PLATELET COUNT 310 /CUMM (130-400); RBC DISTRIBUTION WIDTH 17.2 % (11.5-14.5); RED BLOOD CELL CT 3.41 /CUMM (4.20-5.40); WHITE BLOOD CELL COUNT 7.4 /CUMM (4.8-10.8)
--- NOTE | 2016-12-04 10:51 | RADIOLOGY REPORT ---
EXAMINATION: [place] UPPER GI SERIES CLINICAL INFORMATION: History of gastric bypass surgery with ulcer perforation of gastric remnant, status post Ja patch. COMPARISON: CT images of the abdomen from 12/02/2016. TECHNIQUE: A single contrast upper GI series with fluoroscopy and spot imaging was performed. The patient ingested low 30 mL of Gastroview contrast material without difficulty and was evaluated in the upright and decubitus positions. Patient reported postoperative pain and inability to lay in a prone position. FLUOROSCOPY TIME: 1 minute, 57 seconds NUMBER OF IMAGES: 14 spot fluoroscopy images were saved in the electronic picture archive. FINDINGS: The initial abdominal radiographs show bibasilar atelectasis, surgical clips in the upper abdomen, SONY drainage catheter in the epigastric region, and normal bowel gas pattern. After oral intake of Gastroview contrast material, there was prolonged retention of contrast within the esophagus and gastric pouch. There was intermittent emptying of contrast through the gastrojejunal anastomosis and into the nondilated jejunum. No evidence of a fistulous communication between the gastric pouch and gastric remnant. There was no contrast leakage into the peritoneal cavity. IMPRESSION: 1. No evidence of a gastrogastric fistula. Therefore, the lumen of the gastric remnant could not be evaluated. 2. There was a stenotic appearance of the gastrojejunal anastomosis with intermittent passage of contrast through the narrowed anastomosis into the nondilated, normal proximal jejunum.
--- NOTE | 2016-12-04 11:47 | PN- Bariatrics ---
See Addendum Subjective Subjective: Awake, alert Awaiting upper GI results No abdominal pain, no nausea Passing flatus, no bm Ambulating without difficulty No complaints Objective Vital Signs and I&Os Vital Signs Date Time Temp Pulse Resp B/P B/P Pulse O2 O2 Flow FiO2 Mean Ox Delivery Rate 12/04 0653 98.1 78 18 116/76 98 Room Air 12/03 2229 98.9 100 20 130/78 94 Room Air 12/03 1432 98.1 103 20 142/64 94 Room Air Intake & Output 12/04 1600 12/04 0800 12/04 0000 12/03 1600 12/03 0800 12/03 0000 Intake Total 264 331 4946 1040 1200 Output Total 40 50 125 130 820 Balance 953 504 7762 910 380 Intake, IV 800 700 800 600 Intake, Oral 200 1925 240 600 Number 0 0 0 Bowel Movements Output, 40 50 125 130 20 Drainage Output, Urine 800 Physical Exam: vss, afebrile General: alert and oriented times three Chest: clear anteriorly bilaterally, RRR Abd: soft, good bs, non distended, Ext: warm, no edema Wound: dressed, dry SONY: 40cc last 8 hours, 50cc prior shift, dark brown/green liquid Assessment/Plan Assessment/Plan 36yo female with hx gastric bypass who is POD#2 s/p ex lap/Ja patch for perforated gastric antral ulcer fu UGI - reported negative - will restart clears continue iv unasyn for intra-abdominal perforation continue iv tylenol. add iv toradol around the clock abdominal binder oob/ambulation hep sc - dvt ppx protonix bid Core Measures/Miscellaneous Venous Thromboembolism VTE Risk Factors: Obesity, Smoking, Surgery VTE Contraindications: No Contraindications VTE Diagnosis: No VTE Type: NONE VTE Confirmed by (Test): NONE Beta Marya Is Beta Marya a Home Med? No Antibiotics Is Patient on Antibiotics? Yes If Yes: infection
--- NOTE | 2016-12-04 14:20 | NUR ---
PER DR MILO JACKSON TO DC IVF AT THIS TIME; KIARA ONEAL AWARE AND TO PLACE ORDER TO DC IVF;
[2016-12-04 14:40] VITALS: BP 122/74
--- NOTE | 2016-12-04 19:51 | NUR ---
PT C/O 10/10 PAIN AT 1600, WITH SPASMS, DILAUDID AND VALIUM GIVEN WITH POSITIVE EFFECT. CONTINUING WITH RIC TORADOL, HELPING PATIENT. INDEPENDENT AROUND UNIT. NO BOWEL MOVEMENT. DARK BROWN LIQUID TO SONY DRAIN. SX PA AWARE.
[2016-12-04 22:05] VITALS: BP 124/68; BP 98/60
[2016-12-05 06:25] VITALS: BP 120/70
--- NOTE | 2016-12-05 06:51 | PN- Bariatrics ---
Subjective Subjective: Reports pain improves with iv toradol. Tolerating diet. No nausea/vomiting. Passing flatus. No bm. Voiding well. SONY drain continues to drain bilious fluid. Objective Vital Signs and I&Os Vital Signs Date Time Temp Pulse Resp B/P B/P Pulse O2 O2 Flow FiO2 Mean Ox Delivery Rate 12/05 624 98.7 98 20 120/70 93 Room Air / 0150 99.1 12/04 2205 100.9 112 18 98/60 92 /08 1440 97.8 100 20 122/74 94 Room Air / 0653 98.1 78 18 116/76 98 Room Air Intake & Output 12/05 0800 / 0000 /08 1600 / 0800 / 0000 / 1600 Intake Total 700 1100 456 757 3120 Output Total 30 40 40 50 125 Balance 670 1060 381 651 0373 Intake, IV 100 600 800 700 Intake, Oral 600 804 473 2093 Number 0 0 0 0 Bowel Movements Output, 30 40 40 50 125 Drainage Patient 200 lb Weight Physical Exam: General - alert & oriented x 3. comfortable. no acute distress. Lungs - clear bilaterally. no w/r/r. Cardiac - s1s2. reg. Abdomen - soft. dressings c/d/i. SONY drain with bilious drainage. christian-incisional tenderness. Extremities - warm bilaterally. no c/c/e. calves soft and nontender b/l. Current Medications: Current Medications Sig/Lyndon Start time Last Medication Dose Route Stop Time Status Admin Acetaminophen 1,000 MG Q6P PRN 12/02 0730 AC 12/02 IV 2224 Ampicillin Sodium/ 3,000 MG Q6 12/02 1200 AC 12/05 Sulbactam Sodium IV 12/12 1159 0606 Sodium Chloride 100 ML Aripiprazole 10 MG DAILY 12/04 1000 AC 12/04 PO 1040 Diazepam 2 MG .STK-MED ONE 12/04 1639 DC PO 12/04 1640 Diazepam 5 MG Q8P PRN 12/03 0645 AC 12/04 PO 1641 Gabapentin 600 MG Q8 12/02 1400 AC 12/05 PO 0607 Heparin Sodium 5,000 UNIT Q8 12/02 1400 AC 12/05 (Porcine) SC 0607 Hydromorphone HCl 2 MG Q4-6 PRN PRN 12/05 0645 AC PO Hydromorphone HCl 4 MG Q4-6 PRN PRN 12/05 0545 AC PO Hydromorphone HCl 0.4 MG Q2-3 HRS NEEDED.. 12/03 644 DC IV Hydromorphone HCl 0.6 MG Q2-3 HRS NEEDED.. 12/03 644 DC 12/03 IV 1832 Hydromorphone HCl 1 MG Q2-3 HRS NEEDED.. 12/03 644 DC 12/04 IV 2150 Ketorolac 30 MG Q6 12/03 0638 AC 12/05 Tromethamine IV 0606 Lamotrigine 100 MG DAILY 12/02 1000 AC 12/04 PO 1040 Methadone HCl 65 MG DAILY 12/02 1000 AC 12/04 PO 1041 Nicotine 14 MG DAILY 12/02 1000 AC 12/04 TOP 1041 Ondansetron HCl 4 MG Q6P PRN 12/02 0630 AC IV Pantoprazole Sodium 40 MG BID 12/02 1000 AC 12/04 IV 2103 Potassium Chloride 20 MEQ Q10H 12/03 2355 DC 12/04 Dextrose/Sodium 1,000 ML IV 1040 Chloride Trazodone HCl 50 MG AT BEDTIME NEED.. 12/02 2200 AC 12/04 PO 2109 Results Last 48 Hours of Labs: Laboratory Tests 12/04 12/03 0647 0653 Chemistry Sodium (137 - 145 mmol/L) 138 136 L Potassium (3.5 - 5.1 mmol/L) 4.2 3.8 Chloride (98 - 107 mmol/L) 105 102 Carbon Dioxide (22 - 30 mmol/L) 28 30 Anion Gap (5 - 16) 5 5 BUN (7 - 17 mg/dL) 6 L 6 L Creatinine (0.5 - 1.0 mg/dL) 0.7 0.7 Estimated GFR (>60 ml/min) > 60 > 60 BUN/Creatinine Ratio (7 - 25 %) 8.6 8.6 Hematology CBC w Diff NO MAN DIFF REQ NO MAN DIFF REQ WBC (4.8 - 10.8 /CUMM) 7.4 8.8 RBC (4.20 - 5.40 /CUMM) 3.41 L 3.59 L Hgb (12.0 - 16.0 G/DL) 9.8 L 10.5 L Hct (37 - 47 %) 30.1 L 31.9 L MCV (81.0 - 99.0 FL) 88.3 88.7 MCH (27.0 - 31.0 PG) 28.8 29.2 RDW (11.5 - 14.5 %) 17.2 H 17.8 H Plt Count (130 - 400 /CUMM) 310 328 MPV (7.4 - 10.4 FL) 8.8 8.3 Gran % (42.2 - 75.2 %) 57.6 70.0 Lymphocytes % (20.5 - 51.1 %) 28.9 19.4 L Monocytes % (1.7 - 9.3 %) 11.1 H 9.9 H Eosinophils % (0 - 5 %) 2.0 0.4 Basophils % (0.0 - 2.0 %) 0.4 0.3 Absolute Granulocytes (1.4 - 6.5 /CUMM) 4.3 6.1 Absolute Lymphocytes (1.2 - 3.4 /CUMM) 2.1 1.7 Absolute Monocytes (0.10 - 0.60 /CUMM) 0.8 H 0.9 H Absolute Eosinophils (0.0 - 0.7 /CUMM) 0.1 0 Absolute Basophils (0.0 - 0.2 /CUMM) 0 0 PUBS MCHC (33.0 - 37.0 G/DL) 32.5 L 32.9 L Assessment/Plan Assessment/Plan This 36 year old white female with hx gastric bypass who is POD#3 s/p exploratory laparoscopy and Ja patch for perforated gastric antral ulcer ( remnant stomach) tolerating regular diet d/c iv dilaudid. continue tylenol. transition iv unasyn to oral augmentin for home SONY drain teaching protonix bid hep sc - dvt ppx continue methadone d/c planning will d/w / Core Measures/Miscellaneous Venous Thromboembolism VTE Risk Factors: Obesity, Smoking, Surgery VTE Contraindications: No Contraindications VTE Diagnosis: No VTE Type: NONE VTE Confirmed by (Test): NONE Beta Marya Is Beta Marya a Home Med? No Antibiotics Is Patient on Antibiotics? Yes If Yes: infection
[2016-12-05] MEDS ORDERED: DILAUDID2 M1 PO (06:57)
[2016-12-05] MEDS ORDERED: TYLENOL EXTRA500 M2 PO (06:57)
[2016-12-05] MEDS ORDERED: AUGMENTIN600 MG/5 M PO (06:57)
[2016-12-05] MEDS ORDERED: PROTONIX40 M3 PO (06:57)
--- NOTE | 2016-12-05 07:01 | Patient Discharge Instructions ---
Discharge Instructions General Discharge Information You were seen/treated for: Perforated gastric antral ulcer (remnant stomach) You had these procedures: Surgery Date: 12/02/16 Name of Procedure: Exploratory laparoscopy and Ja patch Watch for these problems: fever>101.3, increased pain, redness/swelling/drainage No bath, but you may shower: Yes Other wound care: SONY drain care. empty & record output as directed. Diet Continue normal diet: Yes Activity Full Activity/No Limits: No Activity Self Limited: Yes Pounds, do NOT lift more than: 10 Additional ACTIVITY Info: walk frequently Acute Coronary Syndrome Inclusion Criteria At DC or during hospital stay patient has or had the following: ACS DIAGNOSIS No Discharge Core Measures Meds if any: Prescribed or Continued at Discharge Meds if any: NOT Prescribed or Continued at Discharge Congestive Heart Failure Inclusion Criteria At DC or during hospital stay patient has or had the following: CHF DIAGNOSIS No Discharge Core Measures Meds if any: Prescribed or Continued at Discharge Meds if any: NOT Prescribed or Continued at Discharge Cerebrovascular accident Inclusion Criteria At DC or during hospital stay patient has or had the following: CVA/TIA Diagnosis No Discharge Core Measures Meds if any: Prescribed or Continued at Discharge Meds if any: NOT Prescribed or Continued at Discharge Venous thromboembolism Inclusion Criteria VTE Diagnosis No VTE Type NONE VTE Confirmed by (Test) NONE Discharge Core Measures - Per Current guidelines, there needs to be overlap - treatment for the first 5 days of Warfarin therapy. - If discharged on Warfarin prior to 5 days of - overlap therapy, the patient will need to be - assessed for post discharge needs including - *Post discharge parental anticoagulation - *Warfarin and/or parental anticoagulation education - *Follow up date to check INR post discharge At least 5 days overlap therapy as Inpatient No Meds if any: Prescribed or Continued at Discharge Note: Overlap Therapy is Warfarin and Anticoagulant Meds if any: NOT Prescribed or Continued at Discharge
--- NOTE | 2016-12-05 07:09 | Surgical Discharge Summary ---
Visit Information Visit Dates Admission Date: 12/02/16 Discharge Date: 12/08/16 History of Present Illness Chief Complaint: abdominal pain Medical History Blood Transfusion Hx: No Neurological: NONE EENT: NONE Cardiovascular: NONE Respiratory: NONE Gastrointestinal: hiatal hernia, GASTRIC BYPASS Hepatic: NONE Renal: NONE Musculoskeletal: NONE Psychiatric: anxiety, depression, insomnia, IV drug abuse (METHADONE MAINTANCE PROGRAM) Endocrine: NONE Blood Disorders: NONE Cancer(s): NONE COOKING INSTRUCTOR/Reproductive: NONE History of MRSA: No History of VRE: No History of CDIFF: No Isolation History: Standard Surgical History Pertinent Surgical History: hernia repair gastric bypass Psychosocial History Where Do You Live? Home Who Do You Live With? Patient/Self What is Your Primary Language? Syriac Review of Systems: see h&p Hospital Course Course Attending Physician: ROBBY MCADAMS MD Primary Care Physician: MER SORIANO [facility] Course: Presented to the ED on 12/02/[address] scan imaging revealed a small amount of free air. Due to her known history of gastric bypass surgery, she was taken to the OR by and for laparoscopic exploration. A perforated gastric antral ulcer (remnant stomach) was identified and treated with a ja patch repair, with a SONY drain left in place. Antibiotics were continued through her hospitalizatio for the perforation. She was continued on twice daily iv protonix. An upper gi study was done on post-op day#2, which did not show a leak, but did show some degree of stenosis of her G-J anastomosis. She was slowly advanced from clears to a regular diet, which she has been tolerating. The SONY drain was left in place, for her to be discharged with, due to some bilious drainage observed and being monitored. She will be discharged with antibiotics, pain medication, and protonix, with follow up early next week to possibly remove the SONY drain. She has been instructed to stop smoking and stop drinking coffee, and will need outpatient GI follow up. Complications: None Allergies: Coded Allergies: bee venom protein (honey bee) (Intermediate, BEES 12/02/16) ibuprofen (HX GASTRIC BYPASS AND ULCERS 12/01/16) Disposition Summary Disposition Principal Diagnosis: Perforated gastric antral ulcer (remnant stomach) Additional Diagnosis: same, s/p Exploratory laparoscopy and Ja patch Discharge Disposition: home or self care Discharge Instructions General Discharge Information Code Status: Full Code Patient's Diet: regular diet. stop drinking coffee. Patient's Activity: no heavy lifting. no strenuous activity. Follow-Up Instructions/Appts: SONY drain care antibiotics prescribed to complete 5 more days protonix twice daily follow up with / early next week discharge instructions provided Medications at Discharge Discharge Medications: Stop taking the following medications: Aripiprazole (Abilify) (Unknown Strength) TABLET Continue taking these medications: Gabapentin (Gabapentin) 600 MG TABLET 1 Tablet ORAL THREE TIMES DAILY Qty = 90 Lamotrigine (Lamotrigine) 100 MG TABLET Qty = 22 Methadone Hydrochloride (Methadone HCl) 10 MG TABLET 65 Milligram ORAL Every Day Comments: METHADONE CLINIC: [facility] Start taking the following new medications: Hydromorphone HCl (Dilaudid) 2 MG TABLET 1-2 Tablet ORAL EVERY 4-6 HOURS NEEDED as needed for pain control Qty = 36 No Refills Instructions: if tylenol ineffective Acetaminophen (Tylenol Extra Strength) 500 MG TABLET 1 Tablet ORAL Every 6-8 Hours as Needed as needed for pain control Days = 10 No Refills Instructions: take as directed. available over the counter. Amoxicillin/Potassium Clav (Augmentin Es-600 Suspension) 600 MG-42.9 MG/5 ML SUSP.RECON 5 Milliliters ORAL TWICE DAILY Qty = 70 No Refills Instructions: take with food Pantoprazole Sodium (Protonix) 40 MG TABLET.DR 1 Tablet ORAL TWICE DAILY Qty = 60 Refills = 1 The following medications have been changed: Old: Aripiprazole (Abilify) 5 MG TABLET 1 Tablet ORAL DAILY Qty = 30 New: Aripiprazole (Abilify) 5 MG TABLET 2 Tablet ORAL DAILY Qty = 30 Copies To: MER SORIANO
[2016-12-05 14:39] VITALS: BP 130/64
[2016-12-05 22:15] VITALS: BP 128/61
[2016-12-06 06:43] VITALS: BP 120/80
[2016-12-06 08:59] LABS: ABSOLUTE BASOPHIL COUNT 0 /CUMM (0.0-0.2); ABSOLUTE EOSINOPHIL COUNT 0.2 /CUMM (0.0-0.7); ABSOLUTE GRANULOCYTE CT 9.7 /CUMM (1.4-6.5); ABSOLUTE LYMPH COUNT 1.3 /CUMM (1.2-3.4); ABSOLUTE MONOCYTE COUNT 0.5 /CUMM (0.10-0.60); BASOPHIL % 0.1 % (0.0-2.0); EOSINOPHIL % 1.4 % (0-5); GRANULOCYTE % 83.6 % (42.2-75.2); HEMATOCRIT 32.5 % (37-47); MEAN CORPUSCULAR HGB 28.7 PG (27.0-31.0); MEAN CORPUSCULAR HGB CONC 32.3 G/DL (33.0-37.0); MEAN CORPUSCULAR VOLUME 88.8 FL (81.0-99.0); MEAN PLATELET VOLUME 8.3 FL (7.4-10.4); PLATELET COUNT 378 /CUMM (130-400); RBC DISTRIBUTION WIDTH 17.2 % (11.5-14.5); RED BLOOD CELL CT 3.65 /CUMM (4.20-5.40)
[2016-12-06 09:36] LABS: WHITE BLOOD CELL COUNT 11.6 /CUMM (4.8-10.8)
--- NOTE | 2016-12-06 10:58 | PN- General Surgery ---
Subjective Subjective: pod#4 lap marya patch fro gastric ulcer no major issues overnight denies cp, sob, no n+v with diet tolerating diet +bm Objective Vital Signs and I&Os Vital Signs Date Time Temp Pulse Resp B/P B/P Pulse O2 O2 Flow FiO2 Mean Ox Delivery Rate / 0643 98.8 92 20 120/80 95 Room Air / 2215 98.4 92 20 128/61 94 Room Air / 1439 99.8 101 20 130/64 94 Room Air Intake & Output / 1600 06/ 0800 / 0000 / 1600 12/05 0800 / 0000 Intake Total 1040 730 700 Output Total 70 80 80 165 30 Balance -70 -80 960 565 670 Intake, IV 200 250 100 Intake, Oral 840 480 600 Number 1 0 Bowel Movements Output, 70 80 80 165 30 Drainage Physical Exam: cv: rrr lungs: clear abd: softly distended +bm epigastric tenderness to palp no evidence of peritonitis charly-continuous bilious output ext: no edema, no calf tenderness Assessment/Plan Assessment/Plan continuous bilious charly output elevated wbc, afebrile plan cont abx will d/w attending Core Measures/Miscellaneous Venous Thromboembolism VTE Risk Factors: Obesity, Smoking, Surgery VTE Contraindications: No Contraindications VTE Diagnosis: No VTE Type: NONE VTE Confirmed by (Test): NONE Beta Marya Is Beta Marya a Home Med? No Antibiotics Is Patient on Antibiotics? Yes If Yes: infection
[2016-12-06 15:29] VITALS: BP 110/64
[2016-12-06 21:54] VITALS: BP 112/74
[2016-12-07 06:23] VITALS: BP 118/64
--- NOTE | 2016-12-07 08:33 | PN- Bariatrics ---
See Addendum Subjective Subjective: OOB, ambulating. +BM this am- formed, nonbloody. No n/v. tolerating reg diet. Some pain at drain site. No CP/SOB. voiding without difficulty. Objective Vital Signs and I&Os Vital Signs Date Time Temp Pulse Resp B/P B/P Pulse O2 O2 Flow FiO2 Mean Ox Delivery Rate 12/07 622 99.3 92 18 118/64 93 Room Air 12/06 2154 98.5 83 20 112/74 95 12/06 1529 98.4 105 20 110/64 92 Room Air Intake & Output 12/07 1600 12/07 0800 12/07 0000 12/06 1600 12/06 0800 12/06 0000 Intake Total 350 600 840 Output Total 430 310 80 70 80 Balance -80 290 760 -70 -80 Intake, IV 100 Intake, Oral 250 600 840 Number 1 Bowel Movements Output, 80 10 80 70 80 Drainage Output, Urine 350 300 Physical Exam: General - alert & oriented, NAD Lungs - no audible wheeze Cardiac - s1s2 RRR Abdomen - soft, dressings c/d/i. SONY drain with bilious drainage, 50 in bulb now. tender at RUQ/drain site. Extremities - calves soft nt b/l, no edema Current Medications: Current Medications Sig/Lyndon Start time Last Medication Dose Route Stop Time Status Admin Acetaminophen 1,000 MG Q6P PRN 12/02 0730 AC 12/02 IV 2224 Aripiprazole 10 MG DAILY 12/04 1000 AC 12/06 PO 0936 Ceftriaxone Sodium 1,000 MG DAILY 12/05 1000 AC 12/06 IV 0937 Diazepam 5 MG Q8P PRN 12/03 0645 AC 12/07 PO 0453 Docusate Sodium 100 MG BID 12/05 1045 AC 12/06 PO 2047 Gabapentin 600 MG Q8 12/02 1400 AC 12/07 PO 0526 Heparin Sodium 5,000 UNIT .STK-MED ONE 12/06 1442 DC (Porcine) IV 12/06 1443 Heparin Sodium 5,000 UNIT Q8 12/02 1400 AC 12/07 (Porcine) SC 0526 Hydromorphone HCl 2 MG Q4-6 PRN PRN 12/05 0645 AC PO Hydromorphone HCl 4 MG Q4-6 PRN PRN 12/05 0645 AC 12/07 PO 0427 Ketorolac 30 MG Q6 12/03 0638 AC 12/07 Tromethamine IV 0526 Lamotrigine 100 MG AT BEDTIME 12/080 AC PO Lamotrigine 50 MG AT BEDTIME 12/07 2200 AC PO 12/07 220 Lamotrigine 50 MG DAILY 12/07 1000 AC PO 12/07 1001 Lamotrigine 100 MG DAILY 12/02 1000 DC 12/05 PO 0921 Methadone HCl 65 MG DAILY 12/02 1000 AC 12/06 PO 0936 Metronidazole 500 MG IQ8 12/05 0800 AC 12/06 N/A 1 UNIT IV 2327 Nicotine 14 MG DAILY 12/02 1000 AC 12/06 TOP 0937 Ondansetron HCl 4 MG Q6P PRN 12/02 0730 AC IV Pantoprazole Sodium 40 MG BID 12/02 1000 AC 12/06 IV 2045 Trazodone HCl 50 MG .STK-MED ONE 12/06 2336 DC PO 12/06 2337 Trazodone HCl 50 MG AT BEDTIME NEED.. 12/02 2199 AC 12/06 PO 2336 Results Last 48 Hours of Labs: Laboratory Tests 12/07 12/06 12/06 0700 0828 0655 Chemistry Sodium (137 - 145 mmol/L) Pending 141 Potassium (3.5 - 5.1 mmol/L) Pending 4.0 Chloride (98 - 107 mmol/L) Pending 106 Carbon Dioxide (22 - 30 mmol/L) Pending 25 Anion Gap (5 - 16) Pending 10 BUN (7 - 17 mg/dL) Pending 12 Creatinine (0.5 - 1.0 mg/dL) Pending 0.6 Estimated GFR (>60 ml/min) > 60 BUN/Creatinine Ratio (7 - 25 %) Pending 20.0 Hematology CBC w Diff Pending WBC (4.8 - 10.8 /CUMM) Pending 11.6 H RBC (4.20 - 5.40 /CUMM) Pending 3.65 L Hgb (12.0 - 16.0 G/DL) Pending 10.5 L Hct (37 - 47 %) Pending 32.5 L MCV (81.0 - 99.0 FL) Pending 88.8 MCH (27.0 - 31.0 PG) Pending 28.7 RDW (11.5 - 14.5 %) Pending 17.2 H Plt Count (130 - 400 /CUMM) Pending 378 MPV (7.4 - 10.4 FL) Pending 8.3 Gran % (42.2 - 75.2 %) 83.6 H Lymphocytes % (20.5 - 51.1 %) 11.0 L Monocytes % (1.7 - 9.3 %) 3.9 Eosinophils % (0 - 5 %) 1.4 Basophils % (0.0 - 2.0 %) 0.1 Absolute Granulocytes (1.4 - 6.5 /CUMM) 9.7 H Absolute Lymphocytes (1.2 - 3.4 /CUMM) 1.3 Absolute Monocytes (0.10 - 0.60 /CUMM) 0.5 Absolute Eosinophils (0.0 - 0.7 /CUMM) 0.2 Absolute Basophils (0.0 - 0.2 /CUMM) 0 PUBS MCHC (33.0 - 37.0 G/DL) Pending 32.3 L Assessment/Plan Assessment/Plan A: 36F POD5 sp marya patch for perforated (remnant) gastic ulcer, now with bilious SONY output and mild leukocytosis yesterday, otherwise stable. P: CBC pdg. Trend WBC. Keep SONY- monitor output. 80cc overnight, 50cc since 6am. cont abx PPI BID prn pain meds, home methadone dose OOB, ambulate, Hep SQ will dw attending Core Measures/Miscellaneous Venous Thromboembolism VTE Risk Factors: Obesity, Smoking, Surgery VTE Contraindications: No Contraindications VTE Diagnosis: No VTE Type: NONE VTE Confirmed by (Test): NONE Beta Marya Is Beta Marya a Home Med? No Antibiotics Is Patient on Antibiotics? Yes If Yes: infection
[2016-12-07 08:47] LABS: ABSOLUTE BASOPHIL COUNT 0 /CUMM (0.0-0.2); ABSOLUTE EOSINOPHIL COUNT 0.2 /CUMM (0.0-0.7); ABSOLUTE GRANULOCYTE CT 8.8 /CUMM (1.4-6.5); ABSOLUTE LYMPH COUNT 1.2 /CUMM (1.2-3.4); ABSOLUTE MONOCYTE COUNT 0.8 /CUMM (0.10-0.60); BASOPHIL % 0.4 % (0.0-2.0); EOSINOPHIL % 1.4 % (0-5); GRANULOCYTE % 80.1 % (42.2-75.2); HEMATOCRIT 28.9 % (37-47); MEAN CORPUSCULAR HGB 28.9 PG (27.0-31.0); MEAN CORPUSCULAR HGB CONC 32.5 G/DL (33.0-37.0); MEAN CORPUSCULAR VOLUME 88.7 FL (81.0-99.0); MEAN PLATELET VOLUME 8.4 FL (7.4-10.4); PLATELET COUNT 381 /CUMM (130-400); RBC DISTRIBUTION WIDTH 16.9 % (11.5-14.5); RED BLOOD CELL CT 3.26 /CUMM (4.20-5.40)
[2016-12-07 15:49] VITALS: BP 124/68
--- NOTE | 2016-12-07 17:01 | CT SCAN REPORT ---
EXAMINATION: CT ABDOMEN AND PELVIS WITH CONTRAST CLINICAL INFORMATION: 36-year-old female with history of gastric bypass and perforated ulcer of gastric remnant. Patient had ulcer repair with a Ja patch with SONY drainage catheter in place. COMPARISON: 12/02/2016 TECHNIQUE: Multidetector volumetric imaging was performed from the superior aspect of the liver through the pubic symphysis following administration of oral contrast. Sagittal and coronal reformatted images were obtained on the technologist's workstation. DLP: 886 mGy-cm FINDINGS: LUNG BASES: Mild atelectasis in lower lobes has increased compared to 12/02/2016. LIVER, GALLBLADDER, AND BILIARY TREE: Liver has normal size, contour and attenuation. Gallbladder is unremarkable. No intrahepatic or extrahepatic bile duct dilatation. PANCREAS: Unremarkable. SPLEEN: Unremarkable. ADRENAL GLANDS: Unremarkable. KIDNEYS AND URETERS: Unremarkable. BLADDER: Unremarkable. GASTROINTESTINAL TRACT: There is a SONY drainage catheter overlying the left hepatic lobe and coursing anterosuperior to the gastric antrum, which appear to be the site of ulcerative perforation on 12/02/2016. There is trace free fluid along the anterior surface of the left hepatic lobe. There has been significant decreased edema/inflammation along the gastrocolic ligament. No residual, measurable fluid collection anterior to the gastric antrum. No abscess. Bowel loops are normal in caliber. There is enteric contrast within the esophagus, gastric pouch and jejunum in this patient who is status post Jose-en-Y gastric bypass. There is no extension of contrast into the gastric remnant. ABDOMINAL WALL: There is diastases of rectus abdominis muscles without interval development of a significant hernia or abdominal wall fluid collection. LYMPH NODES: No pathologic sized lymph nodes in the abdomen or pelvis. VASCULAR: Abdominal aorta is normal in caliber. No retroperitoneal hematoma. PELVIC VISCERA: Unremarkable for noncontrast examination. OSSEOUS STRUCTURES: Unremarkable. IMPRESSION: No evidence of abdominal abscess after surgical treatment of the perforated gastric remnant ulcer. The edema/inflammation along the gastrocolic ligament has significantly decreased compared to 12/02/2016.
[2016-12-07 22:55] VITALS: BP 120/66
--- NOTE | 2016-12-08 06:55 | PN- Bariatrics ---
Subjective Subjective: The patient was seen this morning postoperative day #6. She reports that her pain however surrounding a 6 but the Toradol does help greatly. She has no complaints at the current time and is tolerating a regular diet without nausea and having regular bowel movements. Objective Vital Signs and I&Os Vital Signs Date Time Temp Pulse Resp B/P B/P Pulse O2 O2 Flow FiO2 Mean Ox Delivery Rate 12/07 2255 97.6 93 20 120/66 93 Room Air 12/07 1549 98.2 102 20 124/68 94 Room Air Intake & Output 12/08 0800 12/08 0000 12/07 1600 12/07 0800 12/07 0000 12/06 1600 Intake Total 100 840 350 600 840 Output Total 60 10 140 430 310 80 Balance 40 -10 700 -80 290 760 Intake, IV 100 100 Intake, Oral 840 250 600 840 Output, 60 10 140 80 10 80 Drainage Output, Urine 350 300 Physical Exam: Gen.: Alert and in no obvious distress Skin: Warm and dry Abdomen: Soft, obese, appropriate incisional tenderness, bowel sounds positive. Surgical incision is clean, dry, and intact. SONY 1 holding suction with bilious drainage in the bulb Extremities: Bilateral lower extremities are warm without calf tenderness or significant edema. Assessment/Plan Assessment/Plan Assessment: 28-year-old female status post Ja patch repair of perforated gastric remnant ulcer postoperative day #6. The patient is progressing as expected and her pain is under adequate control. Her drain continues to put out bilious fluid. She has remained afebrile with a normalized white count. Plan: Out of bed and ambulate Continue antibiotics Continue current pain regiment GI and DVT prophylaxis Discharge planning Core Measures/Miscellaneous Venous Thromboembolism VTE Risk Factors: Obesity, Smoking, Surgery VTE Contraindications: No Contraindications VTE Diagnosis: No VTE Type: NONE VTE Confirmed by (Test): NONE Beta Marya Is Beta Marya a Home Med? No Antibiotics Is Patient on Antibiotics? Yes If Yes: infection
[2016-12-08 07:16] VITALS: BP 118/64
[2016-12-08 08:33] LABS: ABSOLUTE BASOPHIL COUNT 0 /CUMM (0.0-0.2); ABSOLUTE EOSINOPHIL COUNT 0.2 /CUMM (0.0-0.7); ABSOLUTE GRANULOCYTE CT 6.4 /CUMM (1.4-6.5); ABSOLUTE LYMPH COUNT 1.5 /CUMM (1.2-3.4); ABSOLUTE MONOCYTE COUNT 0.6 /CUMM (0.10-0.60); BASOPHIL % 0.5 % (0.0-2.0); EOSINOPHIL % 1.9 % (0-5); GRANULOCYTE % 73.4 % (42.2-75.2); HEMATOCRIT 28.4 % (37-47); MEAN CORPUSCULAR HGB CONC 32.8 G/DL (33.0-37.0); MEAN CORPUSCULAR VOLUME 88.4 FL (81.0-99.0); MEAN PLATELET VOLUME 8.2 FL (7.4-10.4); PLATELET COUNT 428 /CUMM (130-400); RED BLOOD CELL CT 3.22 /CUMM (4.20-5.40); WHITE BLOOD CELL COUNT 8.7 /CUMM (4.8-10.8)
[2016-12-08 15:35] VITALS: BP 112/72
== END 2016-12-08 18:22 | DRG 220 ==
LOC: ERH 22:51 → 2NB 12-02 05:39 → PACUH 12-02 07:38 → ENRESERV 12-02 08:55 → ENTRNSPT 12-02 09:43 → EDTRNSPT 12-02 10:01 → EDTRNSPTTYP 12-02 10:01 → CMPTRNSPT 12-02 10:07 → 2NB 12-02 10:08 → CMPTRNSPT 12-02 11:12 → 2NB 12-07 17:44
PROVIDERS: Emergency Medicine; Nurse Practitioner; Physician Assistant; Physician Assistant Surgical; ADMIT Surgery
PROC: 0DU647Z Supplement Stomach with Autologous Tissue Substitute, Percutaneous Endoscopic Approach (ICD-10-PCS; principal; 2016-12-02)
PROC: 3E0T3CZ (ICD-10-PCS; 2016-12-02)
DX: K25.5 Chronic or unspecified gastric ulcer with perforation (principal); F41.8 Other specified anxiety disorders; Z87.898 Personal history of other specified conditions; F11.20 Opioid dependence, uncomplicated; G47.00 Insomnia, unspecified; F17.210 Nicotine dependence, cigarettes, uncomplicated; R00.0 Tachycardia, unspecified; Z98.84 Bariatric surgery status; F17.200 Nicotine dependence, unspecified, uncomplicated; F32.9 Major depressive disorder, single episode, unspecified; M79.7 Fibromyalgia
CPT/HCPCS: 2NBP; 2NBSP; 36415; 74176; 74177; 74240; 81025; 82436; 87086; 96374; 96375; J0131; J0401; J0696; J1170; J1644; J1885; J2250; J2270; J2405; J3010; J7042; S5012